=== PATIENT | male | born 1960 | race Caucasian/White ===

== ENCOUNTER 2023-02-18 12:48 | Emergency (ER) | payer BC ==
--- NOTE | 2023-02-18 13:18 | ED ---
Psych HPI - General Source: patient, police, RN notes reviewed Mode of arrival: wheelchair <Liz Saha - Last Filed: 02/18/23 13:16> <George Haywood - Last Filed: 02/18/23 22:57> - History of Present Illness MD Complaint: suicidal ideation, feels depressed -: unknown Quality: resolved prior to arrival Context: recent alcohol abuse, significant life stressor Associated Symptoms: denies other symptoms Treatments Prior to Arrival: placed on mental health hold If Self Harm: admits thoughts of self harm <Tommy Walton - Last Filed: 02/21/23 01:47> - General Chief Complaint: Psychiatric Symptoms Stated Complaint: Mental Health Time Seen by Provider: 02/18/23 13:16 - History of Present Illness Initial Comments: Patient is a 62-year-old male accompanied by police running the ER with chief complaint of suicidal ideation. Patient called his primary care physician's office and stated he wanted to kill himself. Patient denies any SI at this time. (Liz Saha) This is a 62-year-old male DF for evaluation of suicidal thoughts psychiatric illness and suicidal ideation, patient admits to intoxication (Tommy Walton) - Related Data Home Medications Medication Instructions Recorded Confirmed HYDROcodone/APAP 5-325MG [[place] 1 tab PO Q6H PRN 02/18/23 02/18/23 5-325] Ibuprofen [Motrin] 800 mg PO TID-W/MEALS 02/18/23 02/18/23 Losartan Potassium 100 mg PO DAILY 02/18/23 02/18/23 Metoprolol Succinate (ER) [Toprol 25 mg PO DAILY 02/18/23 02/18/23 Xl] Omeprazole 20 mg PO AC-BID 02/18/23 02/18/23 Zolpidem [Ambien] 10 mg PO HS 02/18/23 02/18/23 traMADol HCL 50 mg PO HS 02/18/23 02/18/23 Allergies Allergy/AdvReac Type Severity Reaction Status Date / Time Sulfa (Sulfonamide Allergy Unknown Verified 02/18/23 17:10 Antibiotics) Childhood Review of Systems ROS Other: All systems not noted in ROS Statement are negative. <Liz Saha - Last Filed: 02/18/23 13:16> ROS Other: All systems not noted in ROS Statement are negative. <George Haywood - Last Filed: 02/18/23 22:57> ROS Other: All systems not noted in ROS Statement are negative. <Tommy Walton - Last Filed: 02/21/23 01:47> ROS Statement: Those systems with pertinent positive or pertinent negative responses have been documented in the HPI. Past Medical History Past Medical History: GERD/Reflux, Hypertension Additional Past Medical History / Comment(s): HX OF SEPTICEMIA AFTER C-DIFF, HAD PEG TUBE FOR NUTRITION. 50-60LB WT LOSS History of Any Multi-Drug Resistant Organisms: C-DIFF Date of last positivie culture/infection: 06/2014 MDRO Source:: STOOL Past Surgical History: Orthopedic Surgery, Tonsillectomy Additional Past Surgical History / Comment(s): PEG TUBE PLACEMENT, ROTATOR CUFF, EPIDURAL FOR BACK PAIN Past Anesthesia/Blood Transfusion Reactions: No Reported Reaction Past Psychological History: No Psychological Hx Reported Past Alcohol Use History: None Reported Past Drug Use History: Marijuana <Liz Saha - Last Filed: 02/18/23 13:16> General Exam Limitations: no limitations <Liz Saha - Last Filed: 02/18/23 13:16> General appearance: alert, in no apparent distress Head exam: Present: atraumatic, normocephalic, normal inspection Eye exam: Present: normal appearance, PERRL, EOMI. Absent: scleral icterus, conjunctival injection, periorbital swelling ENT exam: Present: normal exam, mucous membranes moist Neck exam: Present: normal inspection. Absent: tenderness, meningismus, lymphadenopathy Respiratory exam: Present: normal lung sounds bilaterally. Absent: respiratory distress, wheezes, rales, rhonchi, stridor Cardiovascular Exam: Present: regular rate, normal rhythm, normal heart sounds. Absent: systolic murmur, diastolic murmur, rubs, gallop, clicks GI/Abdominal exam: Present: soft, normal bowel sounds. Absent: distended, tenderness, guarding, rebound, rigid Extremities exam: Present: normal inspection, full ROM, normal capillary refill. Absent: tenderness, pedal edema, joint swelling, calf tenderness Back exam: Present: normal inspection Neurological exam: Present: alert, oriented X3, CN II-XII intact Psychiatric exam: Present: normal affect, normal mood Skin exam: Present: warm, dry, intact, normal color. Absent: rash <Tommy Walton - Last Filed: 02/21/23 01:47> - General Exam Comments Initial Comments: Visual Physical Exam Vital signs reviewed General: Well-appearing, nontoxic, no acute distress. Head: Normocephalic, atraumatic Eyes: PERRLA, EOMI ENT: Airway patent Chest: Nonlabored breathing Skin: No visual rash, normal skin tone Neuro: Alert and oriented 3 Musculoskeletal: No gross abnormalities (Liz Saha) Course <Tommy Walton - Last Filed: 02/21/23 01:47> Vital Signs 02/18/23 02/18/23 13:07 23:01 Temperature 98 F 98.7 F Pulse Rate 68 79 Respiratory 20 16 Rate Blood Pressure 145/93 120/86 O2 Sat by Pulse 98 98 Oximetry - Reevaluation(s) Reevaluation #1: 02/18/23 20:52 Medical records reviewed (Tommy Walton) Reevaluation #2: 02/18/23 20:52 Medical clear for psychiatric evaluation (Tommy Walton) Medical Decision Making <Liz Saha - Last Filed: 02/18/23 13:16> <Tommy Walton - Last Filed: 02/21/23 01:47> - Medical Decision Making I performed the quick note portion of the exam. Electronically signed by Liz Saha PA-C (Liz Saha) 62 male to the emergency department for evaluation of psychiatric illness, patient having persistent mood disorder and can be discharged home clear by psychiatry for discharge (Tommy Walton) - Lab Data Lab Results 02/18/23 Range/Units 21:30 Urine Opiates Screen Detected H (NotDetected) Ur Oxycodone Screen Not Detected (NotDetected) Urine Methadone Screen Not Detected (NotDetected) Ur Propoxyphene Screen Not Detected (NotDetected) Ur Barbiturates Screen Not Detected (NotDetected) U Tricyclic Antidepress Not Detected (NotDetected) Ur Phencyclidine Scrn Not Detected (NotDetected) Ur Amphetamines Screen Not Detected (NotDetected) U Methamphetamines Scrn Not Detected (NotDetected) U Benzodiazepines Scrn Not Detected (NotDetected) Urine Cocaine Screen Not Detected (NotDetected) U Marijuana (THC) Screen Not Detected (NotDetected) Disposition <Liz Saha - Last Filed: 02/18/23 13:16> Is patient prescribed a controlled substance at d/c from ED?: No <George Haywood - Last Filed: 02/18/23 22:57> Is patient prescribed a controlled substance at d/c from ED?: No <Tommy Walton - Last Filed: 02/21/23 01:47> Clinical Impression: Mood disorder Disposition: HOME SELF-CARE Condition: Fair Instructions (If sedation given, give patient instructions): Mood Disorders (ED) Referrals: Warren Douglas DO [Primary Care Provider] - 1-2 days
[2023-02-18] MEDS ORDERED: Acetaminophen-Codeine 300-30mg TAB PO STA (17:28)
[2023-02-18] MEDS ORDERED: HYDROmorphone 1 MG/ML 1 ML SYRINGE IM STA (20:37)
[2023-02-18 22:07] LABS: Amphetamine Screen,Urine Not Detected (NotDetected); Barbiturate Screen,Urine Not Detected (NotDetected); Benzodiazepines Screen,Urine Not Detected (NotDetected); Cocaine Screen,Urine Not Detected (NotDetected); Methadone Screen, Urine Not Detected (NotDetected); Opiate Screen,Urine Detected (NotDetected); Oxycodone Screen, Urine Not Detected (NotDetected); Phencyclidine Screen,Urine Not Detected (NotDetected); Tricyclic Antidepressant,Urine Not Detected (NotDetected); Urn Cannabinoid Scrn Not Detected (NotDetected)
[2023-02-18 23:19] VITALS: BP 120/86; PULSE 79; RESP 16; TEMP 98.7
== END 2023-02-18 23:07 | disposition home or self-care (01) ==
LOC: EC 12:48
DX: F39 Unspecified mood [affective] disorder (principal); K21.9 Gastro-esophageal reflux disease without esophagitis; I10 Essential (primary) hypertension; F12.90 Cannabis use, unspecified, uncomplicated; Z88.2 Allergy status to sulfonamides; Z79.899 Other long term (current) drug therapy
CPT/HCPCS: 82075; 80306; 99285; 96372; J1170